=== PATIENT | male | born 1970 | race Two or more races ===

== ENCOUNTER 2017-01-15 01:13 | Emergency (ER) | payer MEDICARE, MEDICAID ==
[~2017-01-15] VITALS: Ht 180.3 cm; Wt 99.8 kg
[~2017-01-15 01:13] MED LIST: ALL300T PO; ASCO500T11 GT; BACL20TA PO; CHOL20007 OR; CYAN100023 PO; ESOM40CA39 PO; FOLI1TAB51 GT; FUR20T PO; GABA-497 PO; HYDR50TA69 PO; MAGN400T23 PO; MULTTAB5 OR; POTA20TA53 PO; PROP60CA8 PO; PYRI50TA71 PO; SPIR50TA23 PO; THIA100T25 PO; TRAM50TA2 PO
[2017-01-15 01:49] LABS: Basophils # (auto) 0 uL; Basophils % (auto) 0.4 % (0.0-2.0); DEFINITIVE VIEW TRANSMISSION; Eosinophils # (auto) 0.2 uL; Eosinophils % (auto) 4.4 % (0.0-7.0); Hematocrit 35.3 % (41.0-53.0); Hemoglobin 11.7 g/dL (13.5-17.5); Lymphocytes # (auto) 1.4 uL; Lymphocytes % (auto) 33.6 % (10.0-50.0); Mean Corpuscular Hemoglobin 26.5 pg (28.0-32.0); Mean Corpuscular Hgb Conc. 33.2 g/dL (32.0-36.0); Mean Corpuscular Volume 79.8 fL (80.0-100.0); Mean Platelet Volume 6.8 fL (7.4-10.4); Monocytes # (auto) 0.4 uL; Monocytes % (auto) 8.6 % (0.0-12.0); Neutrophils # (auto) 2.2 uL; Platelet Count (auto) 97 10^3/uL (140-450); Red Cell Distribution Width 19.3 % (11.6-16.0); White Blood Cell 4.2 10^3/uL (4.4-10.8)
[2017-01-15 02:12] LABS: Albumin 3.2 g/dL (3.4-5.0); Potassium 3.9 mmol/L (3.5-5.1)
[2017-01-15 02:14] LABS: BUN/Creatinine Ratio 10.7; Bilirubin, Total 1.5 mg/dL (0.2-1.0); Total Protein 7.2 g/dL (6.4-8.2)
[2017-01-15 02:41] LABS: Anisocytosis Slight; Ovalocytes FEW; Platelet Estimate Decreased
[2017-01-15] MEDS ORDERED: THIAMINE INJ 100 MG, MULTIPLE VITAMIN 10 ML, FOLIC ACID 1 MG, MAGNESIUM SULF SDV 50% 8 ... IV ONE ×5 (02:45)
[2017-01-15] MEDS ORDERED: MVI in SODIUM CHLORIDE 0.9% 1,010 ML ONE (03:07)
[2017-01-15] MEDS ORDERED: THIAMINE HCL 100 MG/ML 2ML VIAL ONE (03:07)
[2017-01-15 03:34] LABS: Urine Bilirubin Negative (Negative); Urine Blood Negative /uL (Negative); Urine Color Yellow (Yellow); Urine Glucose Normal (Normal); Urine Hyaline Cast FEW /lpf (0 - 2); Urine Ketone Negative (Negative); Urine Nitrite Negative (Negative); Urine RBC 2 /hpf (0 - 3); Urine Squamous Epithelial Cell FEW /hpf (<5); Urine Urobilinogen Normal (Negative); Urine pH 7.5 (5.0-8.0)
[2017-01-15 05:51] VITALS: BP 126/76
[2017-01-15] MEDS ORDERED: THIAMINE INJ 100 MG, MULTIPLE VITAMIN 10 ML, FOLIC ACID 1 MG, MAGNESIUM SULF SDV 50% 8 ... IV SCH ×5 (12:00)
== END 2017-01-15 06:45 | disposition home or self-care (01) ==
LOC: ER 01:13
DX: R07.9 Chest pain, unspecified (principal); F10.129 Alcohol abuse with intoxication, unspecified; K74.60 Unspecified cirrhosis of liver; Z79.899 Other long term (current) drug therapy
CPT/HCPCS: 36415; 71010; 80053; 80307; 80320; 81001; 83880; 84484; 85025; 93005; 96365; 96366; 99285; J3411; J3475

== ENCOUNTER 2017-06-04 13:22 | Emergency (ER) | payer MEDICARE, MEDICAID ==
[~2017-06-04] VITALS: Ht 188 cm; Wt 72.6 kg
[2017-06-04 17:32] LABS: Basophils # (auto) 0 uL; Eosinophils # (auto) 0 uL; Hemoglobin 11.2 g/dL (13.5-17.5); Lymphocytes # (auto) 0.6 uL; Monocytes # (auto) 0.3 uL; Neutrophils # (auto) 4.1 uL; Nucleated Red Blood Cells % 0.1 %
[2017-06-04 17:34] LABS: Basophils % (auto) 0.9 % (0.0-2.0); Eosinophils % (auto) 0.4 % (0.0-7.0); Lymphocytes % (auto) 11.2 % (10.0-50.0); Mean Corpuscular Hemoglobin 28.3 pg (28.0-32.0); Mean Corpuscular Volume 85.6 fL (80.0-100.0); Mean Platelet Volume 7.4 fL (6.9-10.8); Monocytes % (auto) 6.2 % (0.0-12.0); Neutrophils % (auto) 81.3 % (37.0-80.0); Platelet Count (auto) 52 10^3/uL (140-450); Red Cell Distribution Width 19.6 % (11.8-14.3)
[2017-06-04 17:46] LABS: Albumin 3.5 g/dL (3.4-5.0); BUN/Creatinine Ratio 6.4; Bilirubin, Total 3.4 mg/dL (0.2-1.0); Calcium 8.1 mg/dL (8.5-10.1)
[2017-06-04 17:51] LABS: Potassium 2.8 mmol/L (3.5-5.1)
[2017-06-04 18:05] LABS: Platelet Estimate Decreased
[2017-06-04 18:06] LABS: Anisocytosis Moderate
[2017-06-04] MEDS ORDERED: THIAMINE INJ 100 MG, MULTIPLE VITAMIN 10 ML, FOLIC ACID 1 MG, MAGNESIUM SULF SDV 50% 8 ... IV STA ×5 (19:50)
[2017-06-04] MEDS ORDERED: THIAMINE HCL 100 MG/ML 2ML VIAL ONE (19:57)
[2017-06-04] MEDS ORDERED: ONDANSETRON HCL 4 MG/2 ML VIAL IV ONE (20:00)
[2017-06-04] MEDS ORDERED: FAMOTIDINE (10MG/ML) 2ML VL IV ONE (20:00)
[2017-06-04] MEDS ORDERED: MAGNESIUM SULFATE 1GM/100ML 100 ML IV ONE (20:06)
[2017-06-04] MEDS: POTASSIUM CHL 10MEQ/100ML 100 ML IV SCH ×5 (20:15→22:22)
[2017-06-04] MEDS ORDERED: FOLIC ACID 1 MG TAB PO ONE (20:15)
[2017-06-04] MEDS ORDERED: LORazepam 2MG/ML-1ML VIAL IV ONE (20:45)
[2017-06-04 23:35] LABS: Urine Bilirubin Negative (Negative); Urine Blood Negative /uL (Negative); Urine Color Yellow (Yellow); Urine Glucose Normal (Normal); Urine Hyaline Cast FEW /lpf (0 - 2); Urine Ketone 2+ (Negative); Urine Mucus FEW (None Seen); Urine Nitrite Negative (Negative); Urine RBC 58 /hpf (0 - 3); Urine Squamous Epithelial Cell FEW /hpf (<5); Urine pH 6.5 (5.0-8.0)
[2017-06-05 03:25] VITALS: BP 111/78
== END 2017-06-05 03:37 | disposition home or self-care (01) ==
LOC: EDBD 13:22 → ER 13:22
DX: G92 Toxic encephalopathy (principal); F10.120 Alcohol abuse with intoxication, uncomplicated; F41.9 Anxiety disorder, unspecified; R10.9 Unspecified abdominal pain; K76.9 Liver disease, unspecified; Z79.899 Other long term (current) drug therapy
CPT/HCPCS: 36415; 71010; 80053; 80307; 80320; 81001; 85025; 93005; 96361; 96365; 96368; 96375; 99285; J2060; J2405; J3411; J3475; J3490; J7030

== ENCOUNTER 2018-03-09 09:39 | Emergency (ER) | payer MEDICAID, MEDICARE ==
[~2018-03-09] VITALS: Ht 175.3 cm; Wt 74.8 kg
[~2018-03-09 09:39] MED LIST changes: -ALL300T PO; +CITA-77 PO; -GABA-497 PO; +GABA300C10 PO; +LACT10SO3 PO; +PROP60CA34 PO; -PROP60CA8 PO; -SPIR50TA23 PO; +SPIR50TA5 PO
[2018-03-09] MEDS ORDERED: SODIUM CHLORIDE 0.9% 1,000 ML IV ONE ×3 (10:06→12:44)
[2018-03-09] MEDS ORDERED: THIAMINE 100mg/ml INJ (200mg/2ml VIAL) IV ONE (10:15)
[2018-03-09 10:20] LABS: Basophils # (auto) 0 uL; Eosinophils # (auto) 0.1 uL; Eosinophils % (auto) 2.2 % (0.0-7.0); Hemoglobin 12.2 g/dL (13.5-17.5); Lymphocytes # (auto) 0.7 uL; Monocytes # (auto) 0.4 uL; Neutrophils # (auto) 1.5 uL; White Blood Cell 2.7 10^3/uL (4.4-10.8)
[2018-03-09 10:23] LABS: Basophils % (auto) 1.5 % (0.0-2.0); Hematocrit 37.7 % (41.0-53.0); Mean Corpuscular Hemoglobin 26.3 pg (28.0-32.0); Mean Corpuscular Hgb Conc. 32.4 g/dL (32.0-36.0); Mean Corpuscular Volume 81.1 fL (80.0-100.0); Monocytes % (auto) 14.6 % (0.0-12.0); Neutrophils % (auto) 55.7 % (37.0-80.0); Nucleated Red Blood Cells % 0.2 %; Platelet Count (auto) 41 10^3/uL (140-450); Red Blood Cells 4.65 10^6/uL (4.5-5.90)
[2018-03-09 10:36] LABS: Red Cell Distribution Width 22.1 % (11.8-14.3)
[2018-03-09 10:39] LABS: Albumin 3.5 g/dL (3.4-5.0); BUN/Creatinine Ratio 3.6; Bilirubin, Total 2.5 mg/dL (0.2-1.0); Calcium 7.9 mg/dL (8.5-10.1); Total Protein 7.8 g/dL (6.4-8.2)
[2018-03-09 10:43] LABS: Potassium 2.9 mmol/L (3.5-5.1)
[2018-03-09] MEDS ORDERED: POTASSIUM CHL 20 Meq TABLET PO ONE (11:15)
[2018-03-09 14:51] VITALS: BP 122/85
[2018-03-09] MEDS ORDERED: chlordiazePOXIDE HCL 25 MG CAP PO ONE (15:00)
== END 2018-03-09 15:43 | disposition home or self-care (01) ==
LOC: ER 09:39 → EDUNIT# 09:39 → ER 15:43
DX: R07.89 Other chest pain (principal); F10.129 Alcohol abuse with intoxication, unspecified; Z79.899 Other long term (current) drug therapy
CPT/HCPCS: 36415; 80053; 80320; 84484; 85025; 93005; 96374; 99285; J3411

== ENCOUNTER 2018-05-14 11:49 | Inpatient (IN) | payer MEDICARE, MEDICAID ==
[~2018-05-14] VITALS: Ht 193 cm; Wt 102.9 kg
[2018-05-14] MEDS ORDERED: SODIUM CHLORIDE 0.9% 1,000 ML IVB ONE (12:26)
[2018-05-14 13:09] LABS: Basophils # (auto) 0 uL; Eosinophils # (auto) 0.1 uL; Hemoglobin 10.5 g/dL (13.5-17.5); Lymphocytes # (auto) 0.8 uL; Monocytes # (auto) 0.4 uL
[2018-05-14 13:11] LABS: Basophils % (auto) 0.9 % (0.0-2.0); Eosinophils % (auto) 2.7 % (0.0-7.0); Hematocrit 32.8 % (41.0-53.0); Lymphocytes % (auto) 27.3 % (10.0-50.0); Mean Corpuscular Volume 84.3 fL (80.0-100.0); Monocytes % (auto) 12.4 % (0.0-12.0); Neutrophils # (auto) 1.7 uL; Neutrophils % (auto) 56.7 % (37.0-80.0); Nucleated Red Blood Cells % 0.2 %; Platelet Count (auto) 77 10^3/uL (140-450); Red Blood Cells 3.89 10^6/uL (4.5-5.90)
[2018-05-14 13:16] LABS: Red Cell Distribution Width 21.8 % (11.8-14.3)
[2018-05-14 13:29] LABS: Albumin 2.9 g/dL (3.4-5.0); Calcium 7.2 mg/dL (8.5-10.1); Potassium 3.2 mmol/L (3.5-5.1)
[2018-05-14 13:31] LABS: BUN/Creatinine Ratio 11.5
[2018-05-14 13:33] LABS: Bilirubin, Total 1.7 mg/dL (0.2-1.0); Total Protein 6.8 g/dL (6.4-8.2)
[2018-05-14 13:41] LABS: Magnesium 1.9 mg/dL (1.6-2.6)
[2018-05-14 14:00] LABS: Urine Bacteria NONE SEEN /hpf (None Seen); Urine Blood Negative /uL (Negative); Urine Specific Gravity 1.003 (1.001-1.035); Urine WBC <1 /hpf (0 - 3)
[2018-05-14 14:20] LABS: Amphetamine Screen, Urine NEGATIVE (NEGATIVE); Barbiturate Scree,Urine NEGATIVE (NEGATIVE); Benzodiazephine Screen, Urine POSITIVE (NEGATIVE); Cannabinoid Screen, Urine NEGATIVE (NEGATIVE); Cocaine Screen, Urine NEGATIVE (NEGATIVE); Opiate Scree,Urine NEGATIVE (NEGATIVE); Phencyclidine Screen, Urine NEGATIVE (NEGATIVE)
[2018-05-14] MEDS ORDERED: SODIUM CHLORIDE 0.9% 1,000 ML IV ONE (14:30)
[2018-05-14] MEDS ORDERED: PANTOPRAZOLE 80 MG in SODIUM CHL 0.9% 60 ML IV ONE (17:00)
[2018-05-14 17:29] LABS: Basophils # (auto) 0 uL; Basophils % (auto) 1.2 % (0.0-2.0); Eosinophils # (auto) 0 uL; Eosinophils % (auto) 2.5 % (0.0-7.0); Hematocrit 32.6 % (41.0-53.0); Hemoglobin 10.3 g/dL (13.5-17.5); Lymphocytes # (auto) 0.6 uL; Lymphocytes % (auto) 33.7 % (10.0-50.0); Mean Corpuscular Hemoglobin 26.7 pg (28.0-32.0); Mean Corpuscular Hgb Conc. 31.6 g/dL (32.0-36.0); Mean Corpuscular Volume 84.6 fL (80.0-100.0); Monocytes # (auto) 0.2 uL; Neutrophils % (auto) 50.6 % (37.0-80.0); Nucleated Red Blood Cells % 0.2 %; Platelet Count (auto) 61 10^3/uL (140-450); Red Blood Cells 3.86 10^6/uL (4.5-5.90)
[2018-05-14 17:48] LABS: Red Cell Distribution Width 21.9 % (11.8-14.3); White Blood Cell 1.9 10^3/uL (4.4-10.8)
[2018-05-14] MEDS: THIAMINE INJ 100 MG, MULTIPLE VITAMIN 10 ML, FOLIC ACID 1 MG, MAGNESIUM SULF SDV 50% 8 ... IV SCH ×5 (18:31)
[2018-05-14] MEDS ORDERED: PANTOPRAZOLE 40 MG/10 ML VIAL IV ONE (22:17)
[2018-05-14] MEDS ORDERED: LORazepam 2MG/ML-1ML VIAL IV PRN (23:30)
[2018-05-14] MEDS ORDERED: SODIUM CHLORIDE 0.9% 1,000 ML IV SCH (23:30)
[2018-05-14] MEDS ORDERED: ONDANSETRON HCL 4 MG/2 ML VIAL IV PRN (23:30)
[2018-05-15 00:10] VITALS: BP 118/73
[2018-05-15] MEDS: chlordiazePOXIDE HCL 25 MG CAP PO PRN ×3 (01:03→17:02)
[2018-05-15] MEDS: IBUPROFEN 400 MG TAB PO PRN ×2 (04:29→10:11)
[2018-05-15 04:47] VITALS: BP 127/74
[2018-05-15 06:31] LABS: Basophils # (auto) 0 uL; Eosinophils # (auto) 0 uL; Eosinophils % (auto) 1.2 % (0.0-7.0); Lymphocytes # (auto) 0.3 uL
[2018-05-15 06:33] LABS: Basophils % (auto) 1.1 % (0.0-2.0); Hematocrit 29.9 % (41.0-53.0); Hemoglobin 9.9 g/dL (13.5-17.5); Lymphocytes % (auto) 16.7 % (10.0-50.0); Mean Corpuscular Hemoglobin 27.9 pg (28.0-32.0); Mean Corpuscular Hgb Conc. 33.2 g/dL (32.0-36.0); Mean Corpuscular Volume 84.2 fL (80.0-100.0); Monocytes # (auto) 0.3 uL; Monocytes % (auto) 13.3 % (0.0-12.0); Neutrophils # (auto) 1.3 uL; Neutrophils % (auto) 67.7 % (37.0-80.0); Platelet Count (auto) 55 10^3/uL (140-450); Red Blood Cells 3.56 10^6/uL (4.5-5.90)
[2018-05-15 06:50] LABS: White Blood Cell 1.9 10^3/uL (4.4-10.8)
[2018-05-15 06:58] LABS: Albumin 2.8 g/dL (3.4-5.0); BUN/Creatinine Ratio 8.9; Calcium 7.4 mg/dL (8.5-10.1); Potassium 3.5 mmol/L (3.5-5.1); Total Protein 6.3 g/dL (6.4-8.2)
[2018-05-15 08:44] VITALS: BP 141/80
[2018-05-15] MEDS: FOLIC ACID 1 MG TAB PO SCH (10:10)
[2018-05-15] MEDS: THIAMINE 100mg/ml INJ (200mg/2ml VIAL) IV SCH (10:10)
[2018-05-15] MEDS: MULTIPLE VITAMIN TAB PO SCH (10:10)
[2018-05-15] MEDS ORDERED: THIAMINE INJ 100 MG, MULTIPLE VITAMIN 10 ML, FOLIC ACID 1 MG, MAGNESIUM SULF SDV 50% 8 ... IV SCH ×5 (12:00)
[2018-05-15 12:54] LABS: Hematocrit 33.5 % (41.0-53.0)
[2018-05-15 12:56] LABS: Hemoglobin 10.8 g/dL (13.5-17.5)
[2018-05-15] MEDS ORDERED: PANTOPRAZOLE 40 MG/10 ML VIAL IV ONE (13:15)
[2018-05-15 14:16] VITALS: BP 132/83
[2018-05-15] MEDS: SODIUM CHLORIDE 0.9% 1,000 ML IV SCH ×2 (16:57→23:29)
[2018-05-15 17:22] VITALS: BP 125/76
[2018-05-15] MEDS: THIAMINE INJ 100 MG, MULTIPLE VITAMIN 10 ML, FOLIC ACID 1 MG, MAGNESIUM SULF SDV 50% 8 ... IV SCH ×5 (18:10)
[2018-05-15 22:00] VITALS: BP 132/80
[2018-05-16 05:44] VITALS: BP 134/80
[2018-05-16 07:10] LABS: Basophils # (auto) 0 uL; Eosinophils # (auto) 0 uL; Eosinophils % (auto) 1.9 % (0.0-7.0); Lymphocytes # (auto) 0.3 uL; Monocytes # (auto) 0.2 uL; Neutrophils # (auto) 1.1 uL
[2018-05-16 07:19] LABS: Basophils % (auto) 0.5 % (0.0-2.0); Hematocrit 32.4 % (41.0-53.0); Hemoglobin 10.5 g/dL (13.5-17.5); Lymphocytes % (auto) 18.9 % (10.0-50.0); Mean Corpuscular Hemoglobin 27.7 pg (28.0-32.0); Mean Corpuscular Hgb Conc. 32.4 g/dL (32.0-36.0); Mean Corpuscular Volume 85.5 fL (80.0-100.0); Monocytes % (auto) 13.6 % (0.0-12.0); Neutrophils % (auto) 65.1 % (37.0-80.0); Nucleated Red Blood Cells % 0.2 %; Platelet Count (auto) 46 10^3/uL (140-450); Red Blood Cells 3.79 10^6/uL (4.5-5.90)
[2018-05-16 07:20] LABS: INR 1.21 (0.9-1.15); Partial Thromboplastin Time 27.2 sec (23.78-33.04); Prothrombin Time 12.8 sec (9.27-12.13)
[2018-05-16 07:23] LABS: Albumin 2.6 g/dL (3.4-5.0); BUN/Creatinine Ratio 9.1; Bilirubin, Total 2.7 mg/dL (0.2-1.0); Calcium 7.9 mg/dL (8.5-10.1); Potassium 3.4 mmol/L (3.5-5.1)
[2018-05-16 07:32] LABS: Red Cell Distribution Width 21.8 % (11.8-14.3)
[2018-05-16 07:57] LABS: White Blood Cell 1.7 10^3/uL (4.4-10.8)
[2018-05-16] MEDS: chlordiazePOXIDE HCL 25 MG CAP PO PRN (08:45)
[2018-05-16 08:49] VITALS: BP 126/85
[2018-05-16] MEDS ORDERED: PANTOPRAZOLE 40 MG/10 ML VIAL IV SCH (10:00)
[2018-05-16] MEDS: MULTIPLE VITAMIN TAB PO SCH (10:26)
[2018-05-16] MEDS: THIAMINE 100mg/ml INJ (200mg/2ml VIAL) IV SCH (10:26)
[2018-05-16] MEDS: FOLIC ACID 1 MG TAB PO SCH (10:26)
[2018-05-16] MEDS ORDERED: POTASSIUM CHL 20 Meq TABLET PO ONE (12:15)
[2018-05-16 13:00] VITALS: BP 134/86
== END 2018-05-16 15:30 | disposition home or self-care (01) | DRG 433 ==
LOC: ER 11:53 → TELE-WESTW 11:54
PROVIDERS: ADMIT Nurse Practitioner Family; ATTEND Internal Medicine
DX: K70.30 Alcoholic cirrhosis of liver without ascites (principal); E44.1 Mild protein-calorie malnutrition; K92.1 Melena; D61.818 Other pancytopenia; K76.6 Portal hypertension; J98.11 Atelectasis; S00.03XA Contusion of scalp, initial encounter; D50.0 Iron deficiency anemia secondary to blood loss (chronic); F10.229 Alcohol dependence with intoxication, unspecified; I10 Essential (primary) hypertension; W18.39XA Other fall on same level, initial encounter; J34.2 Deviated nasal septum; D73.1 Hypersplenism; K80.20 Calculus of gallbladder without cholecystitis without obstruction; Z82.49 Family history of ischemic heart disease and other diseases of the circulatory system; Z82.62 Family history of osteoporosis; Y93.89 Activity, other specified; Y92.096 Garden or yard of other non-institutional residence as the place of occurrence of the external cause; Y99.8 Other external cause status; Z68.27 Body mass index [BMI] 27.0-27.9, adult
CPT/HCPCS: 36415; 51702; 70450; 70486; 71045; 72125; 74176; 80053; 80307; 80320; 81001; 82270; 82962; 83690; 83735; 85014; 85018; 85025; 85610; 85730; 86703; 87081; 93005; 96361; 96374; 99291; C9113